=== PATIENT | male | born 1970 | race American Indian/Alaskan Native ===

== ENCOUNTER 2016-11-06 15:17 | Emergency (ER) | payer SELFPAY ==
[2016-11-06 16:13] LABS: Hematocrit 44.1 % (35.5-45.6); Hemoglobin 14.6 gm/dl (11.8-15.2); Mean Corpuscular HGB Conc 33 % (32-34); Mean Corpuscular Hemoglobin 27 pg (28-32); Mean Corpuscular Volume 80 fl (84-94); Platelet Count 247 K/mm3 (140-440); Red Cell Distribution Width 14.1 % (13.2-15.2); White Blood Count 11.8 K/mm3 (4.5-11.0)
[2016-11-06 16:29] LABS: Anion Gap 21 mmol/L; BUN/Creatinine Ratio 18.57; Blood Urea Nitrogen 13 mg/dL (9-20); Calcium 9.4 mg/dL (8.4-10.2); Carbon Dioxide 27 mmol/L (22-30); Chloride 91.1 mmol/L (98-107); Glucose 256 mg/dL (75-100); Potassium 4.3 mmol/L (3.6-5.0); Sodium 135 mmol/L (137-145)
[2016-11-06] MEDS ORDERED: CLEOCIN 900 MG/50 mL 900 MG/50 ML BAG IV ONE (16:49)
--- NOTE | 2016-11-06 16:54 | Emergency Department Report ---
ED ENT HPI - General Chief complaint: Sore Throat Stated complaint: SWOLLEN THROAT Time Seen by Provider: 11/06/16 16:45 Source: patient Mode of arrival: Ambulatory Limitations: No Limitations - History of Present Illness MD complaint: sore throat, difficulty swallowing -: Gradual, days(s) (THREE DAYS) Severity: moderate Severity scale (0 -10): 7 Quality: sharp Consistency: constant Worsens with: swallowing, eating - Related Data Previous Rx's Medication Instructions Recorded Last Taken Type Clindamycin [Clindamycin CAP] 300 mg PO Q8H #30 cap 11/06/16 Unknown Rx Prednisone [predniSONE 10 mg 10 mg PO .TAPER #1 tab.ds.pk 11/06/16 Unknown Rx (6-Day Pack, 21 Tabs)] Allergies Allergy/AdvReac Type Severity Reaction Status Date / Time No Known Allergies Allergy Unverified 11/06/16 15:24 ED Dental HPI - General Chief complaint: Sore Throat Stated complaint: SWOLLEN THROAT Time Seen by Provider: 11/06/16 16:45 Source: patient Mode of arrival: Ambulatory Limitations: No Limitations - Related Data Previous Rx's Medication Instructions Recorded Last Taken Type Clindamycin [Clindamycin CAP] 300 mg PO Q8H #30 cap 11/06/16 Unknown Rx Prednisone [predniSONE 10 mg 10 mg PO .TAPER #1 tab.ds.pk 11/06/16 Unknown Rx (6-Day Pack, 21 Tabs)] Allergies Allergy/AdvReac Type Severity Reaction Status Date / Time No Known Allergies Allergy Unverified 11/06/16 15:24 ED Review of Systems ROS: Stated complaint: SWOLLEN THROAT Other details as noted in HPI Comment: All other systems reviewed and negative Constitutional: chills, fever, malaise ENT: throat pain. denies: ear pain, dental pain, hearing loss, congestion Respiratory: denies: cough, shortness of breath, SOB with exertion, stridor Cardiovascular: denies: chest pain, palpitations Gastrointestinal: denies: nausea, vomiting Neurological: denies: headache, weakness, numbness, vertigo ED Past Medical Hx - Past Medical History Previous Medical History?: No - Surgical History Past Surgical History?: No - Social History Smoking Status: Current Every Day Smoker Substance Use Type: Alcohol, Marijuana - Medications Home Medications: Home Medications Medication Instructions Recorded Confirmed Last Taken Type Clindamycin [Clindamycin CAP] 300 mg PO Q8H #30 cap 11/06/16 Unknown Rx Prednisone [predniSONE 10 mg 10 mg PO .TAPER #1 tab.ds.pk 11/06/16 Unknown Rx (6-Day Pack, 21 Tabs)] ED Physical Exam - General Limitations: No Limitations General appearance: alert, in no apparent distress - Head Head exam: Present: atraumatic, normocephalic - Eye Eye exam: Present: normal appearance - Expanded ENT Exam Expanded Mouth exam: Present: normal external inspection, tongue normal. Absent: drooling, trismus, muffled voice, tongue elevation Throat exam: Positive: tonsillar erythema, tonsillar exudate. Negative: tonsillomegaly - Neck Neck exam: Present: tenderness. Absent: meningismus - Respiratory Respiratory exam: Present: normal lung sounds bilaterally. Absent: wheezes, rales, stridor - Cardiovascular Cardiovascular Exam: Present: regular rate, normal heart sounds - Neurological Exam Neurological exam: Present: alert, oriented X3, CN II-XII intact - Skin Skin exam: Present: warm, dry ED Course Vital Signs 11/06/16 11/06/16 11/06/16 15:20 17:04 17:51 Temperature 99 F Pulse Rate 81 82 71 Respiratory 18 18 18 Rate Blood Pressure 142/92 Blood Pressure 115/78 124/81 [Left] O2 Sat by Pulse 98 98 97 Oximetry - Reevaluation(s) Reevaluation #1: 11/06/16 18:09 PATIENT STATED THAT HE FEEL MUCH BETTER. DENYING ANY DIFFICULTY IN BREATHING OR SWALLOWING. INFORMED ABOUT HIS CT SCAN OF THE NECK RESULT AND ADVISED TO FOLLOW UP WITH HIS PCP IN THE NEXT 2-3 DAYS. 11/06/16 18:10 ED Medical Decision Making - Lab Data Result diagrams: 11/06/16 15:48 11/06/16 15:48 Critical care attestation.: If time is entered above; I have spent that time in minutes in the direct care of this critically ill patient, excluding procedure time. ED Disposition Clinical Impression: Acute bacterial tonsillitis Disposition: DC-01 TO HOME OR SELFCARE Is pt being admited?: No Does the pt Need Aspirin: No Condition: Stable Instructions: Tonsillitis (ED) Prescriptions: Clindamycin [Clindamycin CAP] 300 mg PO Q8H #30 cap Prednisone [predniSONE 10 mg (6-Day Pack, 21 Tabs)] 10 mg PO .TAPER #1 tab.ds.pk
[2016-11-06] MEDS ORDERED: NACL ONE (16:59)
[2016-11-06 17:52] VITALS: BP 124/81
--- NOTE | 2016-11-06 17:58 | Cat Scan Report ---
FINAL REPORT PROCEDURE: CT NECK W CON TECHNIQUE: Computerized axial tomography of the soft tissue neck was performed following the IV injection of iodinated nonionic contrast. HISTORY: FEVER, NECK SWELLING COMPARISON: No prior studies are available for comparison. FINDINGS: Large bullae are seen in the lung apices, left greater than right. Thyroid gland appears normal. There is abnormal edema in the left parapharyngeal region at the level of the hypopharynx. This extends anterior to the carotid vasculature and posterior to the left submandibular gland. There is likely mild edema and enlargement in the left submandibular gland. There is suggestion of edema and possible mucosal thickening in the left side of the mucosa at this level but a discrete hypopharyngeal mass is not seen by this study. There is enlargement of the parapharyngeal tonsils that could be from tonsillitis. Only mild airway narrowing is seen. Prominent jugular digastric lymph nodes are seen with the largest lymph node seen at level 2A in the level of the hypopharynx. It measures 2.6 x 2.1 cm. A similar large right-sided lymph node is seen at this level measuring 2.1 x 1.9 cm. Edema is seen in the subcutaneous soft tissues of the left side of the neck. Parotid glands appear normal. Globes display no abnormalities. Visualized portions of the paranasal sinuses and mastoid air cells are clear. No salivary ductal dilation or salivary stones are seen. IMPRESSION: Lymphadenopathy in the neck is greater than usually seen for reactive lymphadenopathy and malignant lymphadenopathy is not excluded. In the left side of the hypopharynx there is questionable wall thickening which may be a from edema or possibly malignancy. There is edema adjacent to this region in the parapharyngeal soft tissues without evidence of fluid collection. Edema is seen in the subcutaneous soft tissues of the left side of the neck, also. Enlarged parapharyngeal tonsils may be from tonsillitis. Lymphoma could cause a similar appearance in the tonsils and lymph nodes.
[2016-11-06] MEDS ORDERED: DECADRON ONE (18:20)
[2016-11-06] MEDS ORDERED: DECADRON 20 MG in NACL 0.9% 50 ML IV ONE (18:30)
[2016-11-06] MEDS: DECADRON 20 MG in NACL 0.9% 50 ML IV ONE ×2 (18:33→18:52)
[2016-11-06] MEDS ORDERED: DECADRON IV SCH ×2 (19:00)
== END 2016-11-06 18:54 | disposition home or self-care (01) ==
LOC: ED 15:17
DX: J03.80 Acute tonsillitis due to other specified organisms (principal); B96.89 Other specified bacterial agents as the cause of diseases classified elsewhere; F17.200 Nicotine dependence, unspecified, uncomplicated; F12.10 Cannabis abuse, uncomplicated
CPT/HCPCS: 36415; 70491; 80048; 85027; 87116; 87430; 96365; 96375; 99284; J1100; Q9967

== ENCOUNTER 2016-11-24 03:57 | Inpatient (IN) | payer OTHER ==
[2016-11-24] MEDS ORDERED: NACL 0.9% 1000 ML 0 ML ONE (04:21)
[2016-11-24] MEDS ORDERED: NACL 0.9% 1000 ML 1,000 ML ONE (04:21)
[2016-11-24] MEDS ORDERED: NACL 0.9% 1000 ML 1,000 ML IV ONE ×3 (04:22→06:35)
[2016-11-24 04:44] LABS: Basophils % (Auto) 0.8 % (0.0-1.8); Hematocrit 46.5 % (35.5-45.6); Hemoglobin 15.6 gm/dl (11.8-15.2); Mean Corpuscular HGB Conc 34 % (32-34); Mean Corpuscular Hemoglobin 27 pg (28-32); Mean Corpuscular Volume 81 fl (84-94); Platelet Count 284 K/mm3 (140-440); Red Blood Count 5.71 M/mm3 (3.65-5.03); Red Cell Distribution Width 13.9 % (13.2-15.2); White Blood Count 11.8 K/mm3 (4.5-11.0)
[2016-11-24 04:50] LABS: Bilirubin,Urine NEG (Negative); Blood,Urine NEG (Negative); Ketones,Urine NEG (Negative); Leukocyte Esterase,Urine NEG (Negative); Nitrite,Urine NEG (Negative); Protein,Urine <15 mg/dL mg/dL (Negative); Urobilinogen,Urine < 2.0 mg/dL (<2.0)
[2016-11-24 05:06] LABS: Anion Gap 21 mmol/L; BUN/Creatinine Ratio 15.55; Blood Urea Nitrogen 14 mg/dL (9-20); Calcium 9.3 mg/dL (8.4-10.2); Carbon Dioxide 26 mmol/L (22-30); Chloride 85.5 mmol/L (98-107); Potassium 4.2 mmol/L (3.6-5.0); Sodium 128 mmol/L (137-145)
[2016-11-24 05:15] LABS: Glucose 567 mg/dL (75-100)
--- NOTE | 2016-11-24 06:43 | Emergency Department Report ---
ED General Adult HPI - General Chief complaint: Sore Throat Stated complaint: SORE THROAT Time Seen by Provider: 11/24/16 06:30 Source: patient Mode of arrival: Ambulatory Limitations: No Limitations - History of Present Illness Initial comments: Mr. Cifuentes is a 46 years old male coming today with sore throat this is been going on for 2 weeks now this is his second visit to the ER. He was diagnosed with tonsillitis given clindamycin and asked to follow-up with his primary care physician, patient unable to fill the prescription until 3 days later he said he initially get better and now his symptoms, come back again. Denying any fever nausea or vomiting. Patient does have history of diabetes he is [facility] and he was living in [place] and he recently left to [place] and able to get [facility] patient is been out of his metformin for more than 3 months. MD Complaint: patient found to be hypoglycemic with a glucose more than 500 -: week(s) (2) Location: mouth, neck - Related Data Home Medications Medication Instructions Recorded Confirmed Last Taken No Known Home Medications [No 11/24/16 11/24/16 Unknown Reported Home Medications] Allergies Allergy/AdvReac Type Severity Reaction Status Date / Time No Known Allergies Allergy Verified 11/24/16 04:07 ED Review of Systems ROS: Stated complaint: SORE THROAT Other details as noted in HPI Comment: All other systems reviewed and negative Constitutional: denies: chills, fever Respiratory: denies: cough, orthopnea Cardiovascular: denies: chest pain Endocrine: denies: excessive sweating Gastrointestinal: denies: nausea, vomiting, diarrhea, constipation Neurological: denies: headache ED Past Medical Hx - Past Medical History Previous Medical History?: Yes Hx Diabetes: Yes (hasn't taken metformin in months) - Surgical History Past Surgical History?: Yes Additional Surgical History: cyst removed form neck - Social History Smoking Status: Current Every Day Smoker Substance Use Type: Marijuana - Medications Home Medications: Home Medications Medication Instructions Recorded Confirmed Last Taken Type No Known Home Medications [No 11/24/16 11/24/16 Unknown History Reported Home Medications] ED Physical Exam - General Limitations: No Limitations General appearance: alert, in no apparent distress - Expanded ENT Exam Expanded Mouth exam: Present: normal external inspection, tongue normal. Absent: drooling, trismus, muffled voice, tongue elevation, laceration Throat exam: Positive: tonsillar exudate - Neck Neck exam: Present: normal inspection. Absent: tenderness - Respiratory Respiratory exam: Present: normal lung sounds bilaterally. Absent: respiratory distress, wheezes, rales - Cardiovascular Cardiovascular Exam: Present: regular rate, normal rhythm, normal heart sounds - GI/Abdominal GI/Abdominal exam: Present: soft. Absent: tenderness, guarding, rebound - Neurological Exam Neurological exam: Present: alert, oriented X3, CN II-XII intact - Skin Skin exam: Present: warm, normal color ED Course Vital Signs 11/24/16 11/24/16 11/24/16 04:00 05:17 05:30 Temperature 97.8 F Pulse Rate 68 56 L Respiratory 18 12 Rate Blood Pressure 138/91 112/73 O2 Sat by Pulse 97 100 100 Oximetry 11/24/16 11/24/16 05:53 06:30 Temperature Pulse Rate 54 L Respiratory 14 17 Rate Blood Pressure 119/69 O2 Sat by Pulse 98 Oximetry - Reevaluation(s) Reevaluation #1: 11/24/16 07:17 DISCUSS WITH [facility] FOR ADMISSION. ED Medical Decision Making - Lab Data Result diagrams: 11/24/16 04:31 11/24/16 04:31 Critical care attestation.: If time is entered above; I have spent that time in minutes in the direct care of this critically ill patient, excluding procedure time. ED Disposition Clinical Impression: Hyperglycemia, Acute bacterial tonsillitis Disposition: OP ADMIT IP TO THIS HOSP Is pt being admited?: Yes Condition: Stable Referrals: PRIMARY CARE, [Primary Care Provider] - 3-5 Days
[2016-11-24] MEDS ORDERED: CLEOCIN 900 MG/50 mL 900 MG/50 ML BAG IV ONE (06:46)
[2016-11-24 07:09] LABS: Bilirubin,Urine NEG (Negative); Blood,Urine NEG (Negative); Ketones,Urine NEG (Negative); Leukocyte Esterase,Urine NEG (Negative); Nitrite,Urine NEG (Negative); Protein,Urine <15 mg/dL mg/dL (Negative); RBC,Urine < 1.0 /HPF (0.0-6.0); Urobilinogen,Urine < 2.0 mg/dL (<2.0); WBC,Urine < 1.0 /HPF (0.0-6.0)
--- NOTE | 2016-11-24 07:25 | XRay Report ---
Single view chest: History: Chest pain. Findings: Normal cardiomediastinal silhouette. Trachea is midline. No consolidation, pneumothorax or pleural effusion. 3 mm faintly calcified lesion right perihilar area probably suggestive of calcified granuloma. Impression: No acute cardiopulmonary findings.
[2016-11-24] MEDS ORDERED: DULCOLAX PR PRN (08:19)
[2016-11-24] MEDS ORDERED: MORPHINE IV PRN (08:19)
[2016-11-24] MEDS ORDERED: TYLENOL PO PRN (08:19)
[2016-11-24] MEDS ORDERED: ZOFRAN IV PRN (08:19)
[2016-11-24] MEDS ORDERED: D50W (25GM) IV PRN (08:23)
--- NOTE | 2016-11-24 08:57 | History and Physical Report ---
History of Present Illness Date of examination: 11/24/16 Date of admission: 11/24/16 08:19 Chief complaint: Sore Throat and difficulty swallowing History of present illness: Patient is a 46 years old male with past medical history of diabetes mellitus Type 2 whos presentsto emergency department with complains of sore throat. Patient states that this is been going on for 2 weeks now this is his second visit to the ER since 11/06/16. Patient stated that hurts to swallow, throat has been dry, increased thirsty, urination, neck stiffness, congestion to chest and productive coughing with yellow mucus. Patient stated that he lost 10bls since 11/06 because of his sore throat. Patient was admitted here 2 weeks ago for the same symptoms and He was diagnosed with tonsillitis given clindamycin and asked to follow-up with his primary care physician, patient unable to fill the prescription until 3 days later he said he initially get better and now his symptoms, come back again. Patient denies fever, chills , nausea, vomiting, night sweat. Past History Past Medical History: diabetes Past Surgical History: No surgical history Social history: Lives alone. denies: smoking, alcohol abuse Family history: CAD, hypertension Medications and Allergies Allergies Allergy/AdvReac Type Severity Reaction Status Date / Time No Known Allergies Allergy Verified 11/24/16 04:07 Home Medications Medication Instructions Recorded Confirmed Last Taken Type No Known Home Medications [No 11/24/16 11/24/16 Unknown History Reported Home Medications] Active Meds: Active Medications Acetaminophen (Tylenol) 650 mg PO Q4H PRN PRN Reason: Pain MILD(1-3)/Fever >100.5/CASTILLO Bisacodyl (Dulcolax) 10 mg NC QDAY PRN PRN Reason: Constipation unrelieved by MOM Dextrose (D50w (25gm)) 50 ml IV PRN PRN PRN Reason: Hypoglycemia Enoxaparin Sodium (Lovenox) 40 mg SUB-Q QDAY EMELIA Clindamycin HCl (Cleocin 900 Mg/50 Ml) 900 mg in 50 mls @ 100 mls/hr IV Q8H EMELIA Insulin Aspart (Novolog) 0 units SUB-Q AC EMELIA PRN Reason: Protocol Insulin Aspart (Novolog) 0 units SUB-Q QHS EMELIA PRN Reason: Protocol Morphine Sulfate (Morphine) 2 mg IV Q4H PRN PRN Reason: Pain, Moderate (4-6) Ondansetron HCl (Zofran) 4 mg IV Q8H PRN PRN Reason: N/V unrelieved by Reglan Review of Systems Constitutional: no weight gain, no fever, no chills Ears, nose, mouth and throat: no ear pain, no decreased hearing, no nose pain, no nasal congestion Respiratory: cough, cough with sputum (yellow), no excessive sputum, no hemoptysis, no shortness of breath Gastrointestinal: no vomiting, no diarrhea, no change in bowel habits Genitourinary Male: no hematuria, no flank pain, no discharge, no urinary frequency Rectal: no pain, no incontinence, no bleeding Musculoskeletal: no neck pain, no shooting arm pain Integumentary: no pruritis, no redness, no sores, no wounds Neurological: no transient paralysis, no paralysis, no weakness, no parathesias , no numbness Psychiatric: no memory loss, no change in sleep habits, no sleep disturbances, no insomnia, no hypersomnia Endocrine: no cold intolerance, no heat intolerance, no polyphagia, no excessive thirst Hematologic/Lymphatic: no easy bruising, no easy bleeding Allergic/Immunologic: no urticaria, no allergic rhinitis Exam - Constitutional Vitals: Temp Pulse Resp BP Pulse Ox 98.4 F 67 19 134/68 99 11/24/16 07:45 11/24/16 07:30 11/24/16 07:30 11/24/16 07:30 11/24/16 07:30 General appearance: Present: no acute distress - EENT Eyes: Present: PERRL ENT: hearing intact, other (redness of the tonsils, mild enlargement of the tonsils, white coating on the tonsils and mild swollen glands of the neck ) - Neck Neck: Present: supple - Respiratory Respiratory effort: normal Respiratory: bilateral: CTA - Cardiovascular Rhythm: regular Heart Sounds: Present: S1 & S2 - Extremities Extremities: no ischemia Peripheral Pulses: within normal limits - Abdominal General gastrointestinal: Present: soft, non-tender (5) Male genitourinary: Present: deferred - Rectal Rectal Exam: deferred - Integumentary Integumentary: Present: clear, warm, dry - Musculoskeletal Musculoskeletal: strength equal bilaterally - Psychiatric Psychiatric: appropriate mood/affect - Neurologic Neurologic: CNII-XII intact - Allied Health Allied health notes reviewed: nursing Results - Labs CBC & Chem 7: 11/25/16 05:37 11/25/16 05:37 Labs: Laboratory Last Values WBC 11.8 K/mm3 (4.5-11.0) H 11/24/16 04:31 RBC 5.71 M/mm3 (3.65-5.03) H 11/24/16 04:31 Hgb 15.6 gm/dl (11.8-15.2) H 11/24/16 04:31 Hct 46.5 % (35.5-45.6) H 11/24/16 04:31 MCV 81 fl (84-94) L 11/24/16 04:31 MCH 27 pg (28-32) L 11/24/16 04:31 MCHC 34 % (32-34) 11/24/16 04:31 RDW 13.9 % (13.2-15.2) 11/24/16 04:31 Plt Count 284 K/mm3 (140-440) 11/24/16 04:31 Lymph % (Auto) 36.2 % (13.4-35.0) H 11/24/16 04:31 [place] % (Auto) 7.9 % (0.0-7.3) H 11/24/16 04:31 Eos % (Auto) 2.0 % (0.0-4.3) 11/24/16 04:31 Baso % (Auto) 0.8 % (0.0-1.8) 11/24/16 04:31 Lymph # 4.3 K/mm3 (1.2-5.4) 11/24/16 04:31 [place] # 0.9 K/mm3 (0.0-0.8) H 11/24/16 04:31 Eos # 0.2 K/mm3 (0.0-0.4) 11/24/16 04:31 Baso # 0.1 K/mm3 (0.0-0.1) 11/24/16 04:31 Seg Neutrophils % 53.1 % (40.0-70.0) 11/24/16 04:31 Seg Neutrophils # 6.3 K/mm3 (1.8-7.7) 11/24/16 04:31 VBG pH 7.326 (7.320-7.420) 11/24/16 04:31 Sodium 128 mmol/L (137-145) L 11/24/16 04:31 Potassium 4.2 mmol/L (3.6-5.0) 11/24/16 04:31 Chloride 85.5 mmol/L (98-107) L 11/24/16 04:31 Carbon Dioxide 26 mmol/L (22-30) 11/24/16 04:31 Anion Gap 21 mmol/L 11/24/16 04:31 BUN 14 mg/dL (9-20) 11/24/16 04:31 Creatinine 0.9 mg/dL (0.8-1.5) 11/24/16 04:31 Estimated GFR > 60 ml/min 11/24/16 04:31 BUN/Creatinine Ratio 15.55 % 11/24/16 04:31 Glucose 567 mg/dL (75-100) H* 11/24/16 04:31 POC Glucose 292 (70-105) H 11/24/16 08:33 Calcium 9.3 mg/dL (8.4-10.2) 11/24/16 04:31 Urine Color Straw (Yellow) 11/24/16 06:45 Urine Turbidity Clear (Clear) 11/24/16 06:45 Urine pH 6.0 (5.0-7.0) 11/24/16 06:45 Ur Specific [place] 1.033 (1.003-1.030) H 11/24/16 06:45 Urine Protein <15 mg/dl mg/dL (Negative) 11/24/16 06:45 Urine Glucose (UA) >=500 mg/dL (Negative) 11/24/16 06:45 Urine Ketones Neg mg/dL (Negative) 11/24/16 06:45 Urine Blood Neg (Negative) 11/24/16 06:45 Urine Nitrite Neg (Negative) 11/24/16 06:45 Urine Bilirubin Neg (Negative) 11/24/16 06:45 Urine Urobilinogen < 2.0 mg/dL (<2.0) 11/24/16 06:45 Ur Leukocyte Esterase Neg (Negative) 11/24/16 06:45 Urine WBC (Auto) < 1.0 /HPF (0.0-6.0) 11/24/16 06:45 Urine RBC (Auto) < 1.0 /HPF (0.0-6.0) 11/24/16 06:45 U Epithel Cells (Auto) < 1.0 /HPF (0-13.0) 11/24/16 04:31 Hyaline Casts 1 /LPF 11/24/16 04:31 Assessment and Plan Assessment and plan: Tonsillitis Patient has a recent negative throat culture. Patient completed a full course of antibiotic and clinically improving CT of the neck shows mild enlargement of the palatin and lingual tonsil, but with improvement from pervious exam. Shows no abscess formation or airway compression. Started on Cepacol and Phenol spray Supportive care Hyperosmolar hyperglycemic state (HHS) Accu-Chek before meals and after Sliding scale insulin/NovoLog Prompting and saline Levemir 20 units at bedtime We will get A1C level Tobacco abuse Smoking Cessation counseling done patient strongly advised to quit. DVT prophylaxis Lovenox Advance Directives: Yes Contraindication Mechanical VTE Prophylaxis: Treatment Not Indicated Plan of care discussed with patient/family: Yes
[2016-11-24] MEDS ORDERED: CLEOCIN 900 MG/50 mL 900 MG/50 ML BAG IV SCH (09:00)
--- NOTE | 2016-11-24 09:12 | Admit Criteria Form ---
Admission Criteria Documentation: DIABETES Clinical Indications for Admission to Inpatient Care ([place]/check or initial the applicable condition/criteria) Admission is indicated by 1 or more of the following(1)(2)(3)(4)(5): [ ]a) Diabetic ketoacidosis as indicated by ALL the following(9): [ ]i) Hyperglycemia (eg, plasma glucose greater than 200 mg/ dL (11.1 mmol/L)) [ ]ii) Acidosis (eg, arterial or venous pH less than 7.30, serum bicarbonate level less than 15 mEq/L (mmol/L)) [A] [ ]iii) Moderate ketonuria or ketonemia []b) Hyperglycemic hyperosmolar state as indicated by ALL of the following: [ ]i) Plasma glucose greater than 600 mg/dL (33.3 mmol/L) [ ]ii) Serum osmolality greater than 320 mOsm/kg (mmol/kg) [ ]iii) Neurologic dysfunction (eg, stupor, coma, hemiparesis , seizure)(14) [X ]c) Hyperglycemia requiring inpatient care as indicated by 1 or more of the following: [ ]i) Altered mental status that is severe or persistent [ ]ii) Dehydration that is severe or persistent [ ]iii) Vomiting that is severe or persistent [ ]iv) Unexplained fever or severe infection [X ]v) Significant electrolyte abnormality(e.g., hypokalemia , hyperkalemia, hypernatremia) not responsive to outpatient and observation care treatment Extended stay beyond goal length of stay may be needed for(3)(20) [ ]a) Treatment of precipitating causes(2) [ ]b) Development of significant hypoglycemia(22)(23) [ ]c) Complications of treatment(24) [ ]d) Complications of decompensated diabetes (e.g., acute gastric dilatation, persistent metabolic or neurologic derangement) (25) [ ]e) Active Comorbidities [ ]f) Older patients The original [employer] content created by [employer] has been revised. The portions of the content which have been revised are identified through the use of italic text or in bold,and [facility] has neither reviewed nor approved the modified material. All other unmodified content is copyright [employer] [facility]. Please see references footnoted in the original [employer] edition 2017 Admission Criteria Met: Yes
[2016-11-24] MEDS: LOVENOX SUB-Q SCH (10:55)
[2016-11-24] MEDS: NOVOLOG SUB-Q SCH ×2 (12:27→17:14)
[2016-11-24] MEDS ORDERED: CHLORASEPTIC MM PRN (13:39)
[2016-11-24] MEDS ORDERED: CEPACOL X STRENGTH MM PRN (13:39)
[2016-11-24] MEDS ORDERED: NACL ONE (13:58)
--- NOTE | 2016-11-24 14:53 | Cat Scan Report ---
CT scan of neck with IV contrast: Compared to 11/06/16. History: Tonsillar pain and distention. Findings: There is mild enlargement noted of the palatine tonsils with enlargement of the lingual tonsil. There is no abscess formation noted. No airway compression. Lymph nodes are again identified in the same location as seen in the previous study and appears smaller in size. The submandibular salivary gland and parotid glands appear normal. Impression: Findings as detailed above. Findings less pronounced compared to previous study. Clinical correlation and followup may be advised.
--- NOTE | 2016-11-24 17:46 | Event Note ---
46-year-old man with a past medical history of diabetes who has been off his metformin for a few months now. He states that he does not have insurance and has not seen a doctor in months. Presents with polyuria polydipsia, weakness and weight loss. He is also complaining of pain in his throat and trouble swallowing. He states that he was diagnosed with acute tonsillitis in the ER a few days ago he was given an antibiotic which he took and he clinically improved.He is not able to swallow and the pain is improved. Upon review of the microbiology from his ER visit his throat culture was negative for strep, CT of his neck, image was reviewed, there is no evidence of abscess, mild enlargement of palatine and lingual tonsil noted. There is no further indication for antibiotics. Continue supportive care with phenol spray and Cepacol lozenges. With regards to hyperglycemia with hyperglycemic hyperosmolar nonketotic state. Patient is being put on insulin, he is also being put on IV fluids. We'll check an A1c. As he does not have insurance will have case management assess him and offer him prescription discount cards and resources in the community.
[2016-11-24] MEDS ORDERED: LEVEMIR SUB-Q SCH (22:00)
[2016-11-24] MEDS ORDERED: NOVOLOG SUB-Q SCH (22:00)
[2016-11-25 06:46] LABS: Basophils % (Auto) 0.6 % (0.0-1.8); Eosinophils % (Auto) 2.2 % (0.0-4.3); Hematocrit 41.3 % (35.5-45.6); Hemoglobin 13.6 gm/dl (11.8-15.2); Mean Corpuscular HGB Conc 33 % (32-34); Mean Corpuscular Hemoglobin 27 pg (28-32); Mean Corpuscular Volume 81 fl (84-94); Platelet Count 238 K/mm3 (140-440); Red Blood Count 5.12 M/mm3 (3.65-5.03); Red Cell Distribution Width 14.1 % (13.2-15.2)
[2016-11-25 06:51] LABS: Anion Gap 16 mmol/L; BUN/Creatinine Ratio 17.14; Blood Urea Nitrogen 12 mg/dL (9-20); Calcium 8.4 mg/dL (8.4-10.2); Carbon Dioxide 27 mmol/L (22-30); Chloride 100.9 mmol/L (98-107); Glucose 152 mg/dL (75-100); Potassium 3.6 mmol/L (3.6-5.0); Sodium 140 mmol/L (137-145)
[2016-11-25] MEDS ORDERED: GLUCOPHAGE PO SCH (08:00)
[2016-11-25] MEDS ORDERED: GLUCOTROL PO SCH (08:00)
[2016-11-25] MEDS: NOVOLOG SUB-Q SCH ×2 (08:23→12:02)
[2016-11-25] MEDS: LOVENOX SUB-Q SCH (09:20)
--- NOTE | 2016-11-25 12:49 | Discharge Summary ---
Providers - Providers Date of Admission: 11/24/16 08:19 Date of discharge: 11/25/16 Attending physician: DEEPAK VALDES MD Primary care physician: [employer]INE[employer]IEF Hospitalization Condition: Stable Hospital course: Patient is a 46 years old male with past medical history of diabetes mellitus Type 2 who presents to emergency department with complains of sore throat. Patient states that this is been going on for 2 weeks now this is his second visit to the ER since 11/06/16. Patient was diagnosed with tonsillitis, Hyperosmolar hyperglycemic state (HHS) and Tobacco abuse. Patient presented with sore throat and trouble swallowing, strep throat was ruled out, throat culture was negative for strep, CT of his neck, image was reviewed, there is no evidence of abscess, mild enlargement of palatine and lingual tonsil noted. Patient sore throat most likely due to dehydration. Patient completed a full course of antibiotic just prior to admission there is no there is no further need for antibiotics. He was treated with IV fluid hydration, insulin, oral phenol spray and Cepacol lozenges. Patient currently able to eat with mild discomfort. Patient is clinically improved and stable for discharge. Also Ongoing tobacco use smoking cessation counseling done patient strongly advised to quit. Patient agreed upon course of action. Patient advised to follow-up with his primary care provider. Discharge Diagnosed Tonsillitis Hyperosmolar hyperglycemic state (HHS) Tobacco abuse Smoking Cessation counseling done patient strongly advised to quit. Disposition: DC-30 STILL A PATIENT Time spent for discharge: 32 minutes. Core Measure Documentation - Palliative Care Palliative Care/ Comfort Measures: Not Applicable - Core Measures Any of the following diagnoses?: none Exam - Constitutional Vitals: Temp Pulse Resp BP Pulse Ox 99.8 F H 54 L 19 121/78 100 11/25/16 07:00 11/25/16 07:00 11/25/16 07:00 11/25/16 07:00 11/25/16 07:00 General appearance: Present: no acute distress - EENT Eyes: Present: PERRL ENT: hearing intact, other (redness of the tonsils, mild enlargement of the tonsils, white coating on the tonsils and mild swollen glands of the neck ) - Neck Neck: Present: supple - Respiratory Respiratory effort: normal Respiratory: bilateral: CTA - Cardiovascular Heart rate: 54 (sinus bradycardia) Rhythm: regular Heart Sounds: Present: S1 & S2 - Extremities Extremities: no ischemia Peripheral Pulses: within normal limits - Abdominal General gastrointestinal: Present: soft, non-tender Male genitourinary: Present: deferred - Rectal Rectal Exam: deferred - Integumentary Integumentary: Present: clear, warm, dry - Musculoskeletal Musculoskeletal: strength equal bilaterally - Psychiatric Psychiatric: appropriate mood/affect - Neurologic Neurologic: CNII-XII intact - Allied Health Allied health notes reviewed: nursing Plan Activity: no restrictions Weight Bearing Status: Weight Bear as Tolerated Diet: low fat, low cholesterol, low salt Follow up with: PRIMARY CARE, [Primary Care Provider] - 3-5 Days Prescriptions: glipiZIDE [Glucotrol] 10 mg PO BIDDIAB 90 Days metFORMIN [Glucophage] 1,000 mg PO BIDDIAB 90 Days
[2016-11-25 16:59] VITALS: BP 128/68
== END 2016-11-25 15:00 | disposition home or self-care (01) | DRG 639 ==
LOC: ED 03:57 → 3A 08:19
PROVIDERS: ADMIT Internal Medicine; ATTEND Internal Medicine
DX: E11.00 Type 2 diabetes mellitus with hyperosmolarity without nonketotic hyperglycemic-hyperosmolar coma (NKHHC) (principal); J03.91 Acute recurrent tonsillitis, unspecified; F17.210 Nicotine dependence, cigarettes, uncomplicated; Z60.2 Problems related to living alone; Z71.6 Tobacco abuse counseling; Z82.49 Family history of ischemic heart disease and other diseases of the circulatory system
CPT/HCPCS: 36415; 70491; 71010; 80048; 81001; 82805; 82962; 83036; 85025; 87040; 99406; J1650; J1815; J1818; J2270; J7030; Q9967

== ENCOUNTER 2017-01-05 16:47 | Emergency (ER) | payer SELFPAY ==
[2017-01-05] MEDS ORDERED: NACL 0.9% IR ONE (18:41)
[2017-01-05] MEDS ORDERED: XYLOCAINE 1% 20 mL INFILTRATI ONE (18:41)
--- NOTE | 2017-01-05 19:07 | Emergency Department Report ---
Abscess Boil HPI - HPI Chief Complaint: Skin/Abscess/Foreign Body Stated Complaint: BACK PAIN Time Seen by Provider: 01/05/17 18:41 Duration: >1 Week (2 yrs pain x 4 days) Location: Back Severity: Moderate History: Yes Pain, Yes Purulent Drainage (brown ), No Fever, No Numbness, No Foreign Body, No Previous History, No Insect Bite Home Medications: Previous Rx's Medication Instructions Recorded Last Taken Type glipiZIDE [Glucotrol] 10 mg PO BIDDIAB 90 Days 11/25/16 Unknown Rx metFORMIN [Glucophage] 1,000 mg PO BIDDIAB 90 Days 11/25/16 Unknown Rx Clindamycin [Clindamycin CAP] 300 mg PO Q6H #40 capsule 01/05/17 Unknown Rx traMADol [Ultram 50 MG tab] 50 mg PO Q6HR PRN #21 tablet 01/05/17 Unknown Rx Allergies/Adverse Reactions: Allergies Allergy/AdvReac Type Severity Reaction Status Date / Time No Known Allergies Allergy Verified 11/24/16 04:07 ED Review of Systems ROS: Stated complaint: BACK PAIN Other details as noted in HPI Constitutional: denies: chills, fever Eyes: denies: eye pain, eye discharge, vision change ENT: denies: ear pain, throat pain Respiratory: denies: cough, shortness of breath, wheezing Cardiovascular: denies: chest pain, palpitations Endocrine: no symptoms reported Gastrointestinal: denies: abdominal pain, nausea, diarrhea Genitourinary: denies: urgency, dysuria Musculoskeletal: denies: back pain, joint swelling, arthralgia Skin: other (abscess 1x2 cm mid back pain drainage erythema ) Neurological: denies: headache, weakness, paresthesias Psychiatric: denies: anxiety, depression Hematological/Lymphatic: denies: easy bleeding, easy bruising ED Past Medical Hx - Past Medical History Previous Medical History?: Yes Hx Congestive Heart Failure: No Hx Diabetes: Yes (on metformin and glipizide adherent to same. ) Hx Asthma: No - Surgical History Past Surgical History?: Yes Additional Surgical History: cyst removed form neck - Social History Smoking Status: Current Every Day Smoker Substance Use Type: None - Medications Home Medications: Home Medications Medication Instructions Recorded Confirmed Last Taken Type glipiZIDE [Glucotrol] 10 mg PO BIDDIAB 90 Days 11/25/16 Unknown Rx metFORMIN [Glucophage] 1,000 mg PO BIDDIAB 90 Days 11/25/16 Unknown Rx Clindamycin [Clindamycin CAP] 300 mg PO Q6H #40 capsule 01/05/17 Unknown Rx traMADol [Ultram 50 MG tab] 50 mg PO Q6HR PRN #21 tablet 01/05/17 Unknown Rx ED Abscess Boil Physical Exam - Exam General: Vital signs noted. No distress. Alert and acting appropriately. Front/Back of Body, Lg (Color): 1 - abscess 1x2 cm erythema flucuant moderat erythema painful to touch Size: 1 cm Exam: Yes Tenderness, Yes Fluctuance, Yes Surrounding Cellulites/Erythema, Yes Normal Circulation, No Lymphangitis, No Crepitation, No Heart Murmur, No Normal Neurologic Exam I & D Note - I & D Note I & D Note: abscess infected cyst midback 1x2 cm site cleaned with betadine solution anesthesia with 1% lidocaine plain incision with 11 blade straigth incision approx 0.5 cm wound for blunt probing with forcepts purulent brown and black output thick cottage cheese appearance, irrigates wtih 40 cc ns, wound left open steril dressing with 4x4 tape pt given wound care instruction pt verbalized agreement and understanding with same all bleeding controlled pt tolerated procedure with minimal distress. ED Course Vital Signs 01/05/17 17:09 Temperature 98.2 F Pulse Rate 70 Respiratory 18 Rate Blood Pressure 120/65 O2 Sat by Pulse 100 Oximetry Critical care attestation.: If time is entered above; I have spent that time in minutes in the direct care of this critically ill patient, excluding procedure time. ED Medical Decision Making - Medical Decision Making pt is a 46 y/o aam with upper mid back cyst x 2 yrs pain swelling erythema x 4 days, wound found with erythema pain purulent drainage, I&D see procedure ntoe, pt given wound care instruction pt verbalized agreement and understanding with same. will dc with clindamycin po , tramadol prn pain pt will follow up with primary care in 3 days for wound check pt is curently a/o x 3 ambulatory gait steady with nad at this time. ED Disposition Clinical Impression: Infected cyst of skin Disposition: DC-01 TO HOME OR SELFCARE Is pt being admited?: No Does the pt Need Aspirin: No Condition: Good Instructions: Abscess (ED) Prescriptions: Clindamycin [Clindamycin CAP] 300 mg PO Q6H #40 capsule traMADol [Ultram 50 MG tab] 50 mg PO Q6HR PRN #21 tablet PRN Reason: Pain Referrals: PRIMARY CARE, [Primary Care Provider] - 3-5 Days Forms: Work/School Release Form(ED) Time of Disposition: 19:34
[2017-01-05 19:47] VITALS: BP 137/79
[2017-01-05] MEDS ORDERED: BETADINE TP SCH (20:00)
== END 2017-01-05 19:44 | disposition home or self-care (01) ==
LOC: ED 16:47
DX: L02.212 Cutaneous abscess of back [any part, except buttock and flank] (principal); F17.200 Nicotine dependence, unspecified, uncomplicated
CPT/HCPCS: 99282

== ENCOUNTER 2020-10-13 11:42 | Emergency (ER) | payer BC ==
[2020-10-13 12:34] VITALS: BP 137/102
--- NOTE | 2020-10-13 14:00 | XRay Report ---
CHEST 2 VIEWS INDICATION / CLINICAL INFORMATION: cough. COMPARISON: 07/05/2018 FINDINGS: SUPPORT DEVICES: None. HEART / MEDIASTINUM: No significant abnormality. LUNGS / PLEURA: No significant pulmonary or pleural abnormality. No pneumothorax. ADDITIONAL FINDINGS: No significant additional findings. IMPRESSION: No significant abnormality or interval change from 07/05/2018 Signer Name: Norman Woods MD FACR Signed: 10/13/2020 1:55 PM Workstation Name: [id number]
--- NOTE | 2020-10-13 16:01 | Emergency Department Report ---
ED General Adult HPI - General Chief complaint: Nausea/Vomiting/Diarrhea Stated complaint: NAUSEA, COLD CHILLS Time Seen by Provider: 10/13/20 15:20 Source: patient Mode of arrival: Ambulatory Limitations: No Limitations - History of Present Illness Initial comments: 49-year-old -[place] male patient presents with complaints of sudden onset of fatigue and nausea starting yesterday. He reports a history of diabetes and states he is noncompliant with his Metformin for the past year. Patient is also a smoker. He denies any cough, shortness of breath, chest pain, vomiting, diarrhea, or abdominal pain. He also denies any recent contact with sick individuals or loss of taste or smell. Patient does admit to urinary frequency without dysuria, hematuria, or penile/testicular discharge/swelling. - Related Data Previous Rx's Medication Instructions Recorded Last Taken Type glipiZIDE [Glucotrol] 10 mg PO BIDDIAB 90 Days tablet 11/25/16 Unknown Rx metFORMIN [Glucophage] 1,000 mg PO BIDDIAB 90 Days tablet 11/25/16 Unknown Rx Clindamycin [Clindamycin CAP] 300 mg PO Q6H #40 capsule 01/05/17 Unknown Rx traMADoL [Ultram 50 MG tab] 50 mg PO Q6HR PRN #21 tablet 01/05/17 Unknown Rx Albuterol Mdi (or & Nicu Only) 2 puff IH QID PRN #1 inhalation 07/05/18 Unknown Rx [ProAir HFA Inhaler] DOXYCYCLINE Hyclate [Vibramycin 100 mg PO Q12HR #14 capsule 07/05/18 Unknown Rx CAP] Azithromycin [Zithromax Z-ZINA] 0 mg PO DAILY #6 tab 10/13/20 Unknown Rx metFORMIN [Glucophage] 500 mg PO BID #60 tablet 10/13/20 Unknown Rx Allergies Allergy/AdvReac Type Severity Reaction Status Date / Time No Known Allergies Allergy Verified 11/24/16 04:07 ED Review of Systems ROS: Stated complaint: NAUSEA, COLD CHILLS Other details as noted in HPI Constitutional: chills, malaise, weakness. denies: diaphoresis, fever Respiratory: denies: cough, shortness of breath Cardiovascular: denies: chest pain Gastrointestinal: nausea. denies: abdominal pain, vomiting, diarrhea Skin: denies: change in color Hematological/Lymphatic: denies: swollen glands ED Past Medical Hx - Past Medical History Previous Medical History?: Yes Hx Congestive Heart Failure: No Hx Diabetes: Yes (on metformin and glipizide adherent to same. ) Hx Asthma: No - Surgical History Past Surgical History?: No Additional Surgical History: cyst removed form neck - Social History Smoking Status: Never Smoker Substance Use Type: None - Medications Home Medications: Home Medications Medication Instructions Recorded Confirmed Last Taken Type glipiZIDE [Glucotrol] 10 mg PO BIDDIAB 90 Days tablet 11/25/16 Unknown Rx metFORMIN [Glucophage] 1,000 mg PO BIDDIAB 90 Days tablet 11/25/16 Unknown Rx Clindamycin [Clindamycin CAP] 300 mg PO Q6H #40 capsule 01/05/17 Unknown Rx traMADoL [Ultram 50 MG tab] 50 mg PO Q6HR PRN #21 tablet 01/05/17 Unknown Rx Albuterol Mdi (or & Nicu Only) 2 puff IH QID PRN #1 inhalation 07/05/18 Unknown Rx [ProAir HFA Inhaler] DOXYCYCLINE Hyclate [Vibramycin 100 mg PO Q12HR #14 capsule 07/05/18 Unknown Rx CAP] Azithromycin [Zithromax Z-ZINA] 0 mg PO DAILY #6 tab 10/13/20 Unknown Rx metFORMIN [Glucophage] 500 mg PO BID #60 tablet 10/13/20 Unknown Rx ED Physical Exam - General Limitations: No Limitations General appearance: alert, in no apparent distress - Head Head exam: Present: atraumatic, normocephalic - Eye Eye exam: Present: normal appearance - Respiratory Respiratory exam: Present: rhonchi. Absent: respiratory distress, wheezes, rales, stridor - Cardiovascular Cardiovascular Exam: Present: regular rate, normal rhythm - GI/Abdominal GI/Abdominal exam: Present: soft, normal bowel sounds. Absent: distended, tenderness, guarding, rebound, rigid - Back Exam Back exam: Present: full ROM - Neurological Exam Neurological exam: Present: alert, oriented X3, normal gait - Psychiatric Psychiatric exam: Present: normal affect - Skin Skin exam: Present: warm, dry, intact, normal color. Absent: rash, cyanosis, diaphoretic ED Course Vital Signs 10/13/20 10/13/20 12:32 20:00 Temperature 97.7 F Pulse Rate 55 L 55 L Respiratory 18 17 Rate Blood Pressure 137/102 [Right] O2 Sat by Pulse 99 99 Oximetry ED Medical Decision Making - Lab Data Result diagrams: 10/13/20 16:10 10/13/20 16:10 Lab Results 10/13/20 10/13/20 10/13/20 Range/Units 16:02 16:10 16:10 WBC 11.1 H (4.5-11.0) K/mm3 RBC 5.36 H (3.65-5.03) M/mm3 Hgb 14.5 (11.8-15.2) gm/dl Hct 43.7 (35.5-45.6) % MCV 82 L (84-94) fl MCH 27 L (28-32) pg MCHC 33 (32-34) % RDW 14.0 (13.2-15.2) % Plt Count 296 (140-440) K/mm3 Lymph % (Auto) 8.8 L (13.4-35.0) % [place] % (Auto) 2.6 (0.0-7.3) % Eos % (Auto) 0.0 (0.0-4.3) % Baso % (Auto) 0.8 (0.0-1.8) % Lymph # (Auto) 1.0 L (1.2-5.4) K/mm3 [place] # (Auto) 0.3 (0.0-0.8) K/mm3 Eos # (Auto) 0.0 (0.0-0.4) K/mm3 Baso # (Auto) 0.1 (0.0-0.1) K/mm3 Seg Neutrophils % 87.8 H (40.0-70.0) % Seg Neutrophils # 9.8 H (1.8-7.7) K/mm3 VBG pH (7.320-7.420) Sodium 132 L (137-145) mmol/L Potassium 4.2 (3.6-5.0) mmol/L Chloride 93.7 L (98-107) mmol/L Carbon Dioxide 26 (22-30) mmol/L Anion Gap 17 mmol/L BUN 14 (9-20) mg/dL Creatinine 0.7 L (0.8-1.3) mg/dL Estimated GFR > 60 ml/min BUN/Creatinine Ratio 20 % Glucose 356 H (75-100) mg/dL POC Glucose 338 H (70-105) mg/dL Calcium 9.2 (8.4-10.2) mg/dL Total Bilirubin 0.40 (0.1-1.2) mg/dL AST 12 (5-40) units/L ALT 12 (7-56) units/L Alkaline Phosphatase 114 (35-129) units/L Total Protein 7.8 (6.3-8.2) g/dL Albumin 4.0 (3.9-5) g/dL Albumin/Globulin Ratio 1.1 % Urine Color (Yellow) Urine Turbidity (Clear) Urine pH (5.0-7.0) Ur Specific [place] (1.003-1.030) Urine Protein (Negative) mg/dL Urine Glucose (UA) (Negative) mg/dL Urine Ketones (Negative) mg/dL Urine Blood (Negative) Urine Nitrite (Negative) Urine Bilirubin (Negative) Urine Urobilinogen (<2.0) mg/dL Ur Leukocyte Esterase (Negative) Urine WBC (Auto) (0.0-6.0) /HPF Urine RBC (Auto) (0.0-6.0) /HPF 10/13/20 10/13/20 10/13/20 Range/Units 16:10 19:23 21:22 WBC (4.5-11.0) K/mm3 RBC (3.65-5.03) M/mm3 Hgb (11.8-15.2) gm/dl Hct (35.5-45.6) % MCV (84-94) fl MCH (28-32) pg MCHC (32-34) % RDW (13.2-15.2) % Plt Count (140-440) K/mm3 Lymph % (Auto) (13.4-35.0) % [place] % (Auto) (0.0-7.3) % Eos % (Auto) (0.0-4.3) % Baso % (Auto) (0.0-1.8) % Lymph # (Auto) (1.2-5.4) K/mm3 [place] # (Auto) (0.0-0.8) K/mm3 Eos # (Auto) (0.0-0.4) K/mm3 Baso # (Auto) (0.0-0.1) K/mm3 Seg Neutrophils % (40.0-70.0) % Seg Neutrophils # (1.8-7.7) K/mm3 VBG pH 7.396 (7.320-7.420) Sodium (137-145) mmol/L Potassium (3.6-5.0) mmol/L Chloride (98-107) mmol/L Carbon Dioxide (22-30) mmol/L Anion Gap mmol/L BUN (9-20) mg/dL Creatinine (0.8-1.3) mg/dL Estimated GFR ml/min BUN/Creatinine Ratio % Glucose (75-100) mg/dL POC Glucose 344 H 222 H (70-105) mg/dL Calcium (8.4-10.2) mg/dL Total Bilirubin (0.1-1.2) mg/dL AST (5-40) units/L ALT (7-56) units/L Alkaline Phosphatase (35-129) units/L Total Protein (6.3-8.2) g/dL Albumin (3.9-5) g/dL Albumin/Globulin Ratio % Urine Color (Yellow) Urine Turbidity (Clear) Urine pH (5.0-7.0) Ur Specific [place] (1.003-1.030) Urine Protein (Negative) mg/dL Urine Glucose (UA) (Negative) mg/dL Urine Ketones (Negative) mg/dL Urine Blood (Negative) Urine Nitrite (Negative) Urine Bilirubin (Negative) Urine Urobilinogen (<2.0) mg/dL Ur Leukocyte Esterase (Negative) Urine WBC (Auto) (0.0-6.0) /HPF Urine RBC (Auto) (0.0-6.0) /HPF 10/13/20 Range/Units Unknown WBC (4.5-11.0) K/mm3 RBC (3.65-5.03) M/mm3 Hgb (11.8-15.2) gm/dl Hct (35.5-45.6) % MCV (84-94) fl MCH (28-32) pg MCHC (32-34) % RDW (13.2-15.2) % Plt Count (140-440) K/mm3 Lymph % (Auto) (13.4-35.0) % [place] % (Auto) (0.0-7.3) % Eos % (Auto) (0.0-4.3) % Baso % (Auto) (0.0-1.8) % Lymph # (Auto) (1.2-5.4) K/mm3 [place] # (Auto) (0.0-0.8) K/mm3 Eos # (Auto) (0.0-0.4) K/mm3 Baso # (Auto) (0.0-0.1) K/mm3 Seg Neutrophils % (40.0-70.0) % Seg Neutrophils # (1.8-7.7) K/mm3 VBG pH (7.320-7.420) Sodium (137-145) mmol/L Potassium (3.6-5.0) mmol/L Chloride (98-107) mmol/L Carbon Dioxide (22-30) mmol/L Anion Gap mmol/L BUN (9-20) mg/dL Creatinine (0.8-1.3) mg/dL Estimated GFR ml/min BUN/Creatinine Ratio % Glucose (75-100) mg/dL POC Glucose (70-105) mg/dL Calcium (8.4-10.2) mg/dL Total Bilirubin (0.1-1.2) mg/dL AST (5-40) units/L ALT (7-56) units/L Alkaline Phosphatase (35-129) units/L Total Protein (6.3-8.2) g/dL Albumin (3.9-5) g/dL Albumin/Globulin Ratio % Urine Color Straw (Yellow) Urine Turbidity Clear (Clear) Urine pH 6.0 (5.0-7.0) Ur Specific [place] 1.031 H (1.003-1.030) Urine Protein <15 mg/dl (Negative) mg/dL Urine Glucose (UA) >=500 (Negative) mg/dL Urine Ketones 80 (Negative) mg/dL Urine Blood Neg (Negative) Urine Nitrite Neg (Negative) Urine Bilirubin Neg (Negative) Urine Urobilinogen < 2.0 (<2.0) mg/dL Ur Leukocyte Esterase Neg (Negative) Urine WBC (Auto) < 1.0 (0.0-6.0) /HPF Urine RBC (Auto) 1.0 (0.0-6.0) /HPF - Radiology Data Radiology results: report reviewed CHEST 2 VIEWS INDICATION / CLINICAL INFORMATION: cough. COMPARISON: 07/05/2018 FINDINGS: SUPPORT DEVICES: None. HEART / MEDIASTINUM: No significant abnormality. LUNGS / PLEURA: No significant pulmonary or pleural abnormality. No pn eumothorax. ADDITIONAL FINDINGS: No significant additional findings. IMPRESSION: No significant abnormality or interval change from 07/05/2018 - Medical Decision Making 49-year-old -[place] male patient presents with complaints of sudden onset of fatigue and nausea starting yesterday. He reports a history of diabetes and states he is noncompliant with his Metformin for the past year. Patient is also a smoker. He denies any cough, shortness of breath, chest pain, vomiting, diarrhea, or abdominal pain. He also denies any recent contact with sick individuals or loss of taste or smell. Patient does admit to urinary frequency without dysuria, hematuria, or penile/testicular discharge/swelling. Glucose noted to be 356 with a normal venous pH. White count is normal CBC. No signs of infection on UA. Chest x-ray is normal. Patient given 1 L saline and 10 of IV insulin. Glucose now 222. Given rhonchi noted on lung exam and uncontrolled diabetes and the fact that patient is a smoker, will treat for acute bacterial bronchitis with Z-Zina. Patient also given a refill of Metformin and advised on the importance of follow-up with his primary care doctor. His vitals are within normal limits, he is well-appearing, he is stable for dis charge home. Patient states he is feeling much better and no longer fatigued after treatment here in the ED. Strict return precautions were discussed in detail with patient who verbalizes understanding. Critical care attestation.: If time is entered above; I have spent that time in minutes in the direct care of this critically ill patient, excluding procedure time. ED Disposition Clinical Impression: Uncontrolled diabetes mellitus, Acute bacterial bronchitis Disposition: DC-01 TO HOME OR SELFCARE Is pt being admited?: No Condition: Stable Instructions: Hyperglycemia, [id number], Acute Bronchitis, Adult, [id number], Type 2 Diabetes Mellitus, Self Care, Adult, [id number], Diabetes Mellitus Type 2 in Adults (ED), Acute Bronchitis (ED) Additional Instructions: Please get Covid testing within the next 24 hours and self quarantine until results are back Prescriptions: metFORMIN [Glucophage] 500 mg PO BID #60 tablet Azithromycin [Zithromax Z-ZINA] 0 mg PO DAILY #6 tab Referrals: [facility] [Provider Group] - 3-5 Days Forms: Work/School Release Form(ED)
[2020-10-13] MEDS ORDERED: SODIUM CHLORIDE 0.9% 1000 ML 1,000 ML IV ONE (16:07)
[2020-10-13 16:20] LABS: Basophils # (Auto) 0.1 K/mm3 (0.0-0.1); Basophils % (Auto) 0.8 % (0.0-1.8); Hematocrit 43.7 % (35.5-45.6); Hemoglobin 14.5 gm/dl (11.8-15.2); Lymphocytes % (Auto) 8.8 % (13.4-35.0); Mean Corpuscular HGB Conc 33 % (32-34); Mean Corpuscular Volume 82 fl (84-94); Monocytes # (Auto) 0.3 K/mm3 (0.0-0.8); Monocytes % (Auto) 2.6 % (0.0-7.3); Platelet Count 296 K/mm3 (140-440); Red Blood Count 5.36 M/mm3 (3.65-5.03)
[2020-10-13 16:42] LABS: Alanine Aminotransferase 12 units/L (7-56); Blood Urea Nitrogen 14 mg/dL (9-20); Calcium 9.2 mg/dL (8.4-10.2); Hemolysis Index 10
[2020-10-13 16:47] LABS: BUN/Creatinine Ratio 20
[2020-10-13 18:26] LABS: Bilirubin,Urine NEG (Negative); Blood,Urine NEG (Negative); Color,Urine Straw (Yellow); Protein,Urine <15 mg/dL mg/dL (Negative); Urobilinogen,Urine < 2.0 mg/dL (<2.0); WBC,Urine < 1.0 /HPF (0.0-6.0)
[2020-10-13] MEDS ORDERED: INSULIN REGULAR, HUMAN 100 UNITS/1 ML IV ONE (19:26)
== END 2020-10-13 20:00 | disposition home or self-care (01) ==
LOC: ED 11:42
DX: J20.9 Acute bronchitis, unspecified (principal); B96.89 Other specified bacterial agents as the cause of diseases classified elsewhere; E11.9 Type 2 diabetes mellitus without complications; Z98.890 Other specified postprocedural states; Z79.84 Long term (current) use of oral hypoglycemic drugs; Z79.2 Long term (current) use of antibiotics; Z79.899 Other long term (current) drug therapy
CPT/HCPCS: 36415; 71046; 80053; 81001; 82805; 82962; 85025; 96361; 96374; 99284; J7030; J1815

== ENCOUNTER 2020-11-07 15:41 | Emergency (ER) | payer BC ==
[2020-11-07 15:53] VITALS: BP 107/68
--- NOTE | 2020-11-07 18:24 | Emergency Department Report ---
ED General Adult HPI - General Chief complaint: Neck Pain/Injury Stated complaint: NECK IN BAD PAIN Time Seen by Provider: 11/07/20 18:06 Source: patient Mode of arrival: Ambulatory Limitations: No Limitations - History of Present Illness Initial comments: 50-year-old -[place] male patient with history of diabetes presents with complaints of right-sided neck pain x2 weeks. Patient states he saw a masseuse 2 days ago who told him she believes his neck is broken. He denies any injuries to his neck, difficulty moving his neck, fever/chills/sweats, or headache. He rates his current pain as 8/10 in severity and denies trying any OTC medications for his symptoms. He does not improve his symptoms per patient. He describes the pain as aching and tightness that worsens with movement of the neck. He reports for work he does a great deal of repetitive overhead lifting - Related Data Previous Rx's Medication Instructions Recorded Last Taken Type glipiZIDE [Glucotrol] 10 mg PO BIDDIAB 90 Days tablet 11/25/16 Unknown Rx metFORMIN [Glucophage] 1,000 mg PO BIDDIAB 90 Days tablet 11/25/16 Unknown Rx Clindamycin [Clindamycin CAP] 300 mg PO Q6H #40 capsule 01/05/17 Unknown Rx traMADoL [Ultram 50 MG tab] 50 mg PO Q6HR PRN #21 tablet 01/05/17 Unknown Rx Albuterol Mdi (or & Nicu Only) 2 puff IH QID PRN #1 inhalation 07/05/18 Unknown Rx [ProAir HFA Inhaler] DOXYCYCLINE Hyclate [Vibramycin 100 mg PO Q12HR #14 capsule 07/05/18 Unknown Rx CAP] Azithromycin [Zithromax Z-ZINA] 0 mg PO DAILY #6 tab 10/13/20 Unknown Rx metFORMIN [Glucophage] 500 mg PO BID #60 tablet 10/13/20 Unknown Rx Naproxen 500 mg PO BID PRN #20 tablet 11/07/20 Unknown Rx methocarbamoL [Methocarbamol] 750 - 1,500 mg PO TID PRN #30 11/07/20 Unknown Rx tablet Allergies Allergy/AdvReac Type Severity Reaction Status Date / Time No Known Allergies Allergy Verified 11/24/16 04:07 ED Review of Systems ROS: Stated complaint: NECK IN BAD PAIN Other details as noted in HPI Constitutional: denies: chills, diaphoresis, fever, malaise Respiratory: denies: cough, shortness of breath Cardiovascular: denies: chest pain Skin: denies: change in color Neurological: denies: headache, weakness, numbness, paresthesias, abnormal gait ED Past Medical Hx - Past Medical History Hx Congestive Heart Failure: No Hx Diabetes: Yes (on metformin and glipizide adherent to same. ) Hx Asthma: No - Surgical History Additional Surgical History: cyst removed form neck - Social History Smoking Status: Current Every Day Smoker - Medications Home Medications: Home Medications Medication Instructions Recorded Confirmed Last Taken Type glipiZIDE [Glucotrol] 10 mg PO BIDDIAB 90 Days tablet 11/25/16 Unknown Rx metFORMIN [Glucophage] 1,000 mg PO BIDDIAB 90 Days tablet 11/25/16 Unknown Rx Clindamycin [Clindamycin CAP] 300 mg PO Q6H #40 capsule 01/05/17 Unknown Rx traMADoL [Ultram 50 MG tab] 50 mg PO Q6HR PRN #21 tablet 01/05/17 Unknown Rx Albuterol Mdi (or & Nicu Only) 2 puff IH QID PRN #1 inhalation 07/05/18 Unknown Rx [ProAir HFA Inhaler] DOXYCYCLINE Hyclate [Vibramycin 100 mg PO Q12HR #14 capsule 07/05/18 Unknown Rx CAP] Azithromycin [Zithromax Z-ZINA] 0 mg PO DAILY #6 tab 10/13/20 Unknown Rx metFORMIN [Glucophage] 500 mg PO BID #60 tablet 10/13/20 Unknown Rx Naproxen 500 mg PO BID PRN #20 tablet 11/07/20 Unknown Rx methocarbamoL [Methocarbamol] 750 - 1,500 mg PO TID PRN #30 11/07/20 Unknown Rx tablet ED Physical Exam - General Limitations: No Limitations General appearance: alert, in no apparent distress - Head Head exam: Present: atraumatic, normocephalic - Eye Eye exam: Present: normal appearance - Neck Neck exam: Present: tenderness (Right trapezius muscle tenderness to palpation noted without vertebral tenderness or obvious step-off/deformity), full ROM. Absent: meningismus - Respiratory Respiratory exam: Absent: respiratory distress - Cardiovascular Cardiovascular Exam: Present: regular rate - Extremities Exam Extremities exam: Present: full ROM - Neurological Exam Neurological exam: Present: alert, oriented X3, normal gait - Psychiatric Psychiatric exam: Present: normal affect, normal mood - Skin Skin exam: Present: warm, dry, intact, normal color. Absent: rash ED Course Vital Signs 11/07/20 15:47 Temperature 99.1 F Pulse Rate 63 Respiratory 18 Rate Blood Pressure 107/68 O2 Sat by Pulse 98 Oximetry ED Medical Decision Making - Medical Decision Making 50-year-old -[place] male patient with history of diabetes presents with complaints of right-sided neck pain x2 weeks. Patient states he saw a masseuse 2 days ago who told him she believes his neck is broken. He denies any injuries to his neck, difficulty moving his neck, fever/chills/sweats, or headache. He rates his current pain as 8/10 in severity and denies trying any OTC medications for his symptoms. He does not improve his symptoms per patient. He describes the pain as aching and tightness that worsens with movement of the neck. He reports for work he does a great deal of repetitive overhead lifting No spinal tenderness or obvious deformity noted on exam. Patient has full range of motion of the cervical spine. Tenderness to palpation of the right trapezius muscle noted. Given history and exam, suspect cervical strain/radiculopathy. Will treat conservatively with NSAIDs, muscle relaxers, and icing. Recommend patient follows up with PCP within 3 to 5 days. He is well-appearing, his vitals are normal, he is stable for discharge home. Strict return precautions were discussed in detail with patient verbalized understanding. Critical care attestation.: If time is entered above; I have spent that time in minutes in the direct care of this critically ill patient, excluding procedure time. ED Disposition Clinical Impression: Neck pain on right side Disposition: DC-01 TO HOME OR SELFCARE Is pt being admited?: No Condition: Stable Instructions: Cervical Sprain, Cervical Strain and Sprain Rehab-[facility] Prescriptions: methocarbamoL [Methocarbamol] 750 - 1,500 mg PO TID PRN #30 tablet PRN Reason: muscle spasm/tightness Naproxen 500 mg PO BID PRN #20 tablet PRN Reason: pain Referrals: [facility] [Provider Group] - 3-5 Days
== END 2020-11-07 18:26 | disposition home or self-care (01) ==
LOC: ED 15:41
DX: M54.2 Cervicalgia (principal); E11.9 Type 2 diabetes mellitus without complications; F17.200 Nicotine dependence, unspecified, uncomplicated; Z79.899 Other long term (current) drug therapy
CPT/HCPCS: 99282